=== PATIENT | female | born 1980 | race Caucasian/White ===

== ENCOUNTER 2019-08-28 14:16 | Outpatient (CLI) | payer BC ==
[2016-10-21 14:23] VITALS: BP 130/68
[2019-08-28 14:44] LABS: BASOPHILS % 0.6 % (0.0-1.5); NEUTROPHILS # 5.8 # k/uL (1.4-7.7)
[2019-08-28 15:10] LABS: eGFR (Non-African) > 60
== END 2019-08-28 14:21 ==
LOC: LAB 14:16
PROVIDERS: ATTEND Nurse Practitioner Family
DX: R10.813 Right lower quadrant abdominal tenderness (principal)
CPT/HCPCS: 36415; 80053; 85025; 85651